=== PATIENT | female | born 1950 | race Caucasian/White ===

== ENCOUNTER 2019-04-20 10:56 | Inpatient (IN) | payer MEDICARE, MEDICAID ==
[~2019-04-20] VITALS: Ht 154.9 cm; Wt 66.7 kg
[2019-04-20 11:39] LABS: BASOPHILS % 0.1 % (0.0-2.0); EOSINOPHILS % 2.4 % (0.0-5.0); HEMATOCRIT. 33.3 % (36.0-48.0); HEMOGLOBIN. 11.3 g/dL (12.0-16.0); LYMPHOCYTES % 12.1 % (20.0-50.0); MEAN CORPUSCULAR HEMOGLOBIN 33.9 pg (28.0-32.0); MEAN CORPUSCULAR VOLUME 99.6 fL (81.0-99.0); MEAN PLATELET VOLUME 8.9 fl (7.4-10.4); MONOCYTES % 5.1 % (2.0-8.0); NEUTROPHILS % 80.3 % (40.0-76.0); PLATELET 204 x1000/uL (130-400); RED BLOOD CELL COUNT 3.34 mill/uL (4.2-5.4); RED CELL DISTRIBUTION WIDTH 13.7 % (11.6-14.6)
[2019-04-20 11:43] LABS: CHLORIDE 104 mEq/L (98-107)
[2019-04-20 11:44] LABS: INR 0.9; PROTHROMBIN TIME 9.5 sec (9.6-11.0)
[2019-04-20 13:22] LABS: CLARITY URINE CLOUDY (CLEAR); COLOR URINE DARK YELLOW (YELLOW); KETONES URINE TRACE (NEGATIVE); LEUKOCYTE ESTERASE URINE NEGATIVE (NEGATIVE); NITRITE URINE NEGATIVE (NEGATIVE); OCCULT BLOOD URINE NEGATIVE (NEGATIVE); PROTEIN URINE 1+ (NEGATIVE); UROBILINOGEN URINE 0.2 E.U./dL (0.2-1.0)
[2019-04-20] MEDS ORDERED: LEVOFLOXACIN 500MG PREMIX 100 ML IV NR (14:45)
[2019-04-20] MEDS ORDERED: LEVOFLOXACIN 500MG PREMIX 100 ML IV SCH (14:45)
[2019-04-20] MEDS ORDERED: CLONIDINE 0.1MG TABLET PO PRN (14:45)
[2019-04-20] MEDS ORDERED: ONDANSETRON HCL 4MG/2ML INJ IV PRN (14:45)
[2019-04-20] MEDS ORDERED: ACETAMINOPHEN 325MG TABLET PO PRN (14:45)
[2019-04-20 14:47] LABS: CREATINE KINASE 365 IU/L (26-192)
[2019-04-20] MEDS: SODIUM CHLORIDE 0.45% 1,000 ML IV SCH (15:30)
[2019-04-20] MEDS: LORAZEPAM 2MG/ML CPJ IV PRN (15:31)
[2019-04-20 15:52] LABS: BG BASE EXCESS -10.7 mmol/L (-2.0-2.0); BG FRACTION INSPIRED OXYGEN 21; BG METHEMOGLOBIN 1.3 % (0.0-1.5); BG OXYGEN SATURATION 93.9 % (92.0-98.5); BG OXYHEMOGLOBIN 92.7 % (94.0-97.0); BG PCO2 33.2 mmHg (35.0-45.0); BG PH 7.274 (7.350-7.450); BG PO2 78.1 mmHg (75.0-100.0); BG SAMPLE SITE RIGHT BRACHIAL; BG TOTAL HEMOGLOBIN 11.8 g/dL (12.0-18.0); BG VENT MODE ROOM AIR
[2019-04-20 21:30] VITALS: BP 109/55
[2019-04-21] VITALS: BP 116/58
[2019-04-21] MEDS: SODIUM CHLORIDE 0.45% 1,000 ML IV SCH ×3 (02:18→18:40)
[2019-04-21 04:00] VITALS: BP 122/62
[2019-04-21] MEDS ORDERED: DEXTROSE 50% WATER 50ML SYRINGE IV PRN ×2 (06:30)
[2019-04-21] MEDS: INSULIN LISPRO 100 UNITS/ML SUBCUT SCH ×4 (07:05→20:31)
[2019-04-21] MEDS: BLOOD SUGAR DIAGNOSTIC STRIP TEST SCH ×4 (07:05→20:31)
[2019-04-21 07:24] LABS: BASOPHILS % 0.3 % (0.0-2.0); EOSINOPHILS % 3.1 % (0.0-5.0); HEMATOCRIT. 32.2 % (36.0-48.0); HEMOGLOBIN. 10.7 g/dL (12.0-16.0); LYMPHOCYTES % 20.7 % (20.0-50.0); MEAN CORPUSCULAR HEMOGLOBIN 34.2 pg (28.0-32.0); MEAN CORPUSCULAR VOLUME 102.9 fL (81.0-99.0); MEAN PLATELET VOLUME 8.8 fl (7.4-10.4); MONOCYTES % 5.5 % (2.0-8.0); NEUTROPHILS % 70.4 % (40.0-76.0); PLATELET 188 x1000/uL (130-400); RED BLOOD CELL COUNT 3.13 mill/uL (4.2-5.4); RED CELL DISTRIBUTION WIDTH 13.8 % (11.6-14.6)
[2019-04-21 08:00] VITALS: BP 112/65
[2019-04-21 09:26] LABS: CHLORIDE 109 mEq/L (98-107)
[2019-04-21 09:38] LABS: T4 FREE 0.89 ng/dL (0.76-1.46)
[2019-04-21 12:00] VITALS: BP 106/69
[2019-04-21 16:00] VITALS: BP 110/68
[2019-04-21 20:00] VITALS: BP 141/69
[2019-04-21] MEDS ORDERED: TRAM50TA3 PO (22:54)
[2019-04-21] MEDS ORDERED: DULO20CA17 PO (22:54)
[2019-04-21] MEDS ORDERED: NEPVIT PO (22:54)
[2019-04-21] MEDS ORDERED: ATOR40TA70 PO (22:54)
[2019-04-21] MEDS ORDERED: ACYC200C PO (22:54)
[2019-04-21] MEDS ORDERED: AMLO5TAB4 PO (22:54)
[2019-04-21] MEDS ORDERED: CYAN-33 PO (22:54)
[2019-04-21] MEDS ORDERED: CHOL200074 PO (22:54)
[2019-04-21] MEDS ORDERED: HYDR4TAB56 PO (22:54)
[2019-04-21] MEDS ORDERED: MAGN200T5 PO (22:55)
[2019-04-21] MEDS ORDERED: LISI-186 PO (22:55)
[2019-04-21] MEDS ORDERED: TACR1CAP22 PO ×2 (22:55)
[2019-04-21] MEDS ORDERED: GABA-531 PO (22:55)
[2019-04-21] MEDS ORDERED: OMEG-118 PO (22:55)
[2019-04-21] MEDS ORDERED: RANI150T7 PO (22:55)
[2019-04-21] MEDS ORDERED: METH-612 PO (22:55)
[2019-04-22] VITALS: BP 135/73
[2019-04-22] MEDS: TRAMADOL 50MG TABLET PO PRN ×2 (03:48→13:45)
[2019-04-22 04:00] VITALS: BP 128/69
[2019-04-22] MEDS: BLOOD SUGAR DIAGNOSTIC STRIP TEST SCH ×4 (06:20→20:42)
[2019-04-22] MEDS: SODIUM CHLORIDE 0.45% 1,000 ML IV SCH ×3 (06:20→22:32)
[2019-04-22] MEDS: INSULIN LISPRO 100 UNITS/ML SUBCUT SCH ×5 (06:21→20:42)
[2019-04-22 06:51] LABS: BASOPHILS % 0.4 % (0.0-2.0); EOSINOPHILS % 3.1 % (0.0-5.0); HEMOGLOBIN. 10.4 g/dL (12.0-16.0); LYMPHOCYTES % 27.2 % (20.0-50.0); MEAN CORPUSCULAR HEMOGLOBIN 34.6 pg (28.0-32.0); MEAN CORPUSCULAR VOLUME 99.6 fL (81.0-99.0); MEAN PLATELET VOLUME 8.8 fl (7.4-10.4); MONOCYTES % 7.7 % (2.0-8.0); NEUTROPHILS % 61.6 % (40.0-76.0); PLATELET 200 x1000/uL (130-400); RED BLOOD CELL COUNT 3.01 mill/uL (4.2-5.4)
[2019-04-22 06:57] LABS: PHOSPHORUS 3.2 mg/dL (2.5-4.9)
[2019-04-22 08:00] VITALS: BP 143/49
[2019-04-22] MEDS ORDERED: MEDICATION NOT ON FORMULARY EA (Ranitidine Hcl 150 MG) PO SCH (09:00)
[2019-04-22] MEDS ORDERED: MEDICATION NOT ON FORMULARY EA (Acyclovir 400 MG) PO SCH (09:00)
[2019-04-22] MEDS: METHOCARBAMOL 500MG TABLET PO SCH ×3 (09:05→17:21)
[2019-04-22] MEDS: CHOLECALCIFEROL (D3) 1000 UNIT TABLET PO SCH (09:06)
[2019-04-22] MEDS: TACROLIMUS 1MG CAPSULE PO SCH (09:07)
[2019-04-22] MEDS: MAGNESIUM OXIDE 400MG TABLET PO SCH ×2 (09:07→17:21)
[2019-04-22] MEDS: CYANOCOBALAMIN 1000MCG TABLET PO SCH (09:07)
[2019-04-22] MEDS: AMLODIPINE 5MG TABLET PO SCH (09:07)
[2019-04-22] MEDS: DULOXETINE HCL 20MG DR CAPSULE PO SCH (09:07)
[2019-04-22] MEDS: FAMOTIDINE 20MG TABLET PO SCH (09:08)
[2019-04-22] MEDS: LISINOPRIL 5MG TABLET PO SCH (09:08)
[2019-04-22] MEDS: FOLIC ACID/VITAMIN B COMP W-C TABLET PO SCH (09:08)
[2019-04-22] MEDS: FISH OIL/OMEGA-3 FATTY ACIDS 1000MG CAPSULE PO SCH (09:08)
[2019-04-22 12:00] VITALS: BP 130/55
[2019-04-22] MEDS ORDERED: LEVOFLOXACIN 250MG PREMIX 50 ML IV SCH (15:00)
[2019-04-22 16:00] VITALS: BP 127/58
[2019-04-22] MEDS ORDERED: ACYCLOVIR 400 MG TABLET PO SCH (17:00)
[2019-04-22 17:15] LABS: ANTI-NUCLEAR ANTIBODIES DIRECT Positive (Negative)
[2019-04-22 20:00] VITALS: BP 132/54
[2019-04-22] MEDS ORDERED: TACROLIMUS 1MG CAPSULE PO SCH (20:00)
[2019-04-22] MEDS ORDERED: HYDROCODONE/ACETAMINOPHEN 10/325MG TABLET PO PRN (20:15)
[2019-04-22] MEDS: ACYCLOVIR 400 MG TABLET PO SCH (20:49)
[2019-04-22] MEDS ORDERED: GABAPENTIN 300MG CAPSULE PO SCH (21:00)
[2019-04-22] MEDS ORDERED: ATORVASTATIN CALCIUM 40MG TABLET PO SCH (21:00)
[2019-04-22] MEDS: LORAZEPAM 2MG/ML CPJ IV PRN (22:32)
[2019-04-23] VITALS: BP 129/69
[2019-04-23 04:00] VITALS: BP 135/72
[2019-04-23] MEDS: BLOOD SUGAR DIAGNOSTIC STRIP TEST SCH ×2 (06:18→12:34)
[2019-04-23 08:00] VITALS: BP 162/63
[2019-04-23] MEDS: TACROLIMUS 1MG CAPSULE PO SCH (08:21)
[2019-04-23] MEDS: CYANOCOBALAMIN 1000MCG TABLET PO SCH (09:06)
[2019-04-23] MEDS: METHOCARBAMOL 500MG TABLET PO SCH ×2 (09:06→12:39)
[2019-04-23] MEDS: FOLIC ACID/VITAMIN B COMP W-C TABLET PO SCH (09:06)
[2019-04-23] MEDS: FISH OIL/OMEGA-3 FATTY ACIDS 1000MG CAPSULE PO SCH (09:07)
[2019-04-23] MEDS: LISINOPRIL 5MG TABLET PO SCH (09:07)
[2019-04-23] MEDS: AMLODIPINE 5MG TABLET PO SCH (09:07)
[2019-04-23] MEDS: CHOLECALCIFEROL (D3) 1000 UNIT TABLET PO SCH (09:07)
[2019-04-23] MEDS: ACYCLOVIR 400 MG TABLET PO SCH (09:08)
[2019-04-23] MEDS: MAGNESIUM OXIDE 400MG TABLET PO SCH (09:08)
[2019-04-23] MEDS: DULOXETINE HCL 20MG DR CAPSULE PO SCH (09:08)
[2019-04-23] MEDS: FAMOTIDINE 20MG TABLET PO SCH (09:08)
[2019-04-23 10:01] LABS: BASOPHILS % 0.8 % (0.0-2.0); EOSINOPHILS % 3.5 % (0.0-5.0); HEMATOCRIT. 33.9 % (36.0-48.0); HEMOGLOBIN. 11.6 g/dL (12.0-16.0); LYMPHOCYTES % 32.7 % (20.0-50.0); MEAN CORPUSCULAR HEMOGLOBIN 33.9 pg (28.0-32.0); MEAN CORPUSCULAR VOLUME 99.2 fL (81.0-99.0); MEAN PLATELET VOLUME 8.8 fl (7.4-10.4); MONOCYTES % 7.7 % (2.0-8.0); NEUTROPHILS % 55.3 % (40.0-76.0); PLATELET 236 x1000/uL (130-400); RED BLOOD CELL COUNT 3.42 mill/uL (4.2-5.4); RED CELL DISTRIBUTION WIDTH 14.4 % (11.6-14.6)
[2019-04-23 10:06] LABS: COMPLEMENT C3 127 mg/dL (82-167)
[2019-04-23] MEDS: SODIUM CHLORIDE 0.45% 1,000 ML IV SCH (12:39)
[2019-04-23] MEDS: INSULIN LISPRO 100 UNITS/ML SUBCUT SCH (12:40)
[2019-04-23 16:00] VITALS: BP 157/86
[2019-04-23] MEDS ORDERED: LEVOFLOXACIN 250MG TABLET PO SCH (16:00)
[2019-04-23 17:48] VITALS: BP 150/80
== END 2019-04-23 18:00 | disposition home or self-care (01) | DRG 70 ==
LOC: ER 10:56 → 8WST 13:06 → SUPCPDRO 13:59 → ENRESERV 19:55
PROVIDERS: ADMIT Hospitalist; ATTEND Hospitalist
DX: G93.41 Metabolic encephalopathy (principal); N18.6 End stage renal disease; N17.9 Acute kidney failure, unspecified; E44.1 Mild protein-calorie malnutrition; I12.0 Hypertensive chronic kidney disease with stage 5 chronic kidney disease or end stage renal disease; Z94.4 Liver transplant status; E11.22 Type 2 diabetes mellitus with diabetic chronic kidney disease; E86.9 Volume depletion, unspecified; G89.4 Chronic pain syndrome; Z99.2 Dependence on renal dialysis; Y83.0 Surgical operation with transplant of whole organ as the cause of abnormal reaction of the patient, or of later complication, without mention of misadventure at the time of the procedure; Z86.73 Personal history of transient ischemic attack (TIA), and cerebral infarction without residual deficits
CPT/HCPCS: 36415; 36600; 71045; 76770; 80048; 82140; 82375; 82550; 82805; 82962; 83605; 83735; 84100; 84145; 84439; 84443; 84484; 86038; 86160; 92610; 93005; 93970; 96365; 96366; 97116; 97162; 99291; J1815; J1956; J2060; J7507